=== PATIENT | female | born 1980 | race Caucasian/White ===

== ENCOUNTER 2018-11-06 05:39 | Inpatient (IN) | payer MEDICAID, SELFPAY ==
[2018-11-01 12:23] LABS: Partial Thromboplast Time 30.9 Seconds (24.1-36.2); Prothrombin Time (Protime)PT. 13.2 SECONDS (11.7-14.9)
[2018-11-01 12:37] LABS: Hematocrit 39.7 % (37-47); Hemoglobin 13.3 g/dl (12.0-15.0); Mean Corp Hgb Conc 33.5 g/gl (32-36); Mean Corpuscular Hgb 29.4 pg (27.0-32.0); Mean Corpuscular Volume 87.8 fL (81-99); Mean Platelet Vol. 9.8 fl (6.2-12.0); Platelet Count 223 K/mm3 (150-450); RBC Distribution Width CV 12.6 % (11.6-14.6); RBC Distribution Width SD 40.8 fl (35.1-43.9); Red Blood Count 4.52 M/mm3 (4.2-5.4); White Blood Count 6.3 K/mm3 (4.4-11.0)
[2018-11-01 12:39] LABS: Scan Indicated on CBC? Y/N NO
[2018-11-01 12:43] LABS: Creatinine, Serum 0.77 mg/dL (0.55-1.02); EST Glomerular Filtration Rate 90 mL/min (>60); Est Glom Filt Rate - Afr Amer 109 mL/min (>60)
[2018-11-01 13:36] LABS: Internal QC Validated? YES +Cl - CLEAR BKGD; Pregnancy, Serum, hCG Quali. NEGATIVE Negative
--- NOTE | 2018-11-05 11:35 | HP.PCM_ITS ---
History and Physical Date of Admission: 11/06/18 Surgical History and Physical Dania Velázquez, a 37 year old female 0, presents for SANDOVAL/BS on November 06, 2018 at 7:30. -- Symptomatic Uterine Fibroids -- Pt has fibroids and she is having heavier bleeding wit her menses and they are more painful. PT states she has cramping all month long. C/o when she bends over she feels what she would describe as a Belt Buckle feeling right there. Ultrasound in July showed multiple large fibroids present with total uterine volume 1100+cc: 1)submucous 8.6 x 9.9 x 9.2cm 2)6.1 x 5.4 x 4.9cm 3)3.4 x 2 x 3.2cm 4)pedunculated 6.2 x 5.4 x 4.9cm. MEDICATIONS HISTORY: Current medications prescribed by our practice are: 1. Ortho Tri-Cyclen (28) 0.18 mg(7)/0.215 mg(7)/0.25 mg(7)-35 mcg tablet, One pill by mouth once a day ALLERGIES: NKA Infections - Chicken Pox Illnesses - no serious past illnesses Accidents - no injuries of consequence Hospitalizations - None Review of Systems: GENERAL - Denies fever, or chills SKIN - Denies skin changes EYES - Denies visual changes EARS - Denies difficulty hearing NOSE - Denies nasal congestion or bleeding MOUTH - Denies sore throat or difficulty swallowing NECK - Denies pain or swelling RESPIRATORY - Denies shortness of breath or wheezing CARDIOVASCULAR - Denies palpitations or chest pain GASTROINTESTINAL - Denies nausea, vomiting, diarrhea, constipation GENITOURINARY - Denies dysuria, frequency of urination, incontinence of urine MUSCULOSKELETAL - Denies joint or muscle pain NEUROLOGICAL - Denies localized numbness or weakness PSYCHIATRIC - Denies depression or anxiety ENDOCRINE - Denies heat or cold intolerance, weight loss or gain HEMATO-IMMUNOLOGIC - Denies excesive bleeding with cuts SOCIAL HISTORY: Alcohol Use - denies drinking Smoking - denies smoking Diet - no special diet Lifestyle - low stress lifestyle Exercise - active Seat Belt Use - always Employer - [employer] Job Description - Stylist/Superintendent [employer] Illicit Drug Use - denies use of street drugs Sexual Activity - Hours Worked - Fulltime Spouse-Sig Other Name - Chan Spouse-Sig Other Occupation - [employer] FAMILY HISTORY: Family history of Maternal Great Mother- Breast CA. Mother: dx with lymphoma in September 2007. Maternal Grandfather: Pancreatic CA. MENSTRUAL HISTORY: LMP Known?- ApproximateAmount/Duration - 5-6 DAYS, Regularity - Regular, Frequency - 28 days, LMP - 10/16/18, Age Onset Menarche - 15 PAST PREGNANCIES: Total Pregnancies - 0; Full Term Pregnancies - 0; Premature - 0; Abortions, Induced - 0; Abortions, Spontaneous - 0; Ectopics - 0; Multiple Births - 0; Living Children - 0 SURGICAL HISTORY: 1. 06/11/2005 [place] Teeth Removal ; PHYSICAL EXAM BP- 100/80 Sitting, Right arm, regular cuff Temp- 98.2 Taken Orally Weight- 151.64467 lbs Height- 68.00 inch BMI:23.13 CONSTITUTIONAL - NAD, well nourished, and well developed SKIN - No rash, lesions, or ulcers HEENT - Normocephalic, PERRLA, EOMI NECK - No nodes, no nuchal rigidity and thyroid normal size and texture LYMPH NODES - Palpation of lymph nodes in neck and groins within normal limits LUNGS - CTA x2 without wheezes, crackles or rales CARDIAC - Regular rate and rhythm without rubs, murmurs, or gallops ABDOMEN - Without hepatosplenomegaly, distention, masses, rebound, or guarding; normal bowel sounds; no hernias EXTREMITIES - No edema or calf tenderness NEUROLOGICAL - Cranial nerves II-XII grossly intact PSYCHIATRIC - A and O to time, place, person, mood and affect External Genital Vagina - non-tender without lesions Urethra/Urethral Meatus - non-tender Bladder - non-tender Vagina - vaginal aguiar are pink and moist without loss of rugae and no evidence of atropy Cervix - without cervical motion tenderness and has normal size and features without evident lesions Uterus - 18 cm tender fibroid uterus Adnexa - clear without masses or tenderness ASSESSMENT/PLAN: 1. Leiomyoma Of Uterus, Unspecified Multiple large and symptomatic. Unable to remove via vaginal hyst so will proceed with SANDOVAL/BS. Discussed RBAs and all questions answered.
[2018-11-06] VITALS (11 sets, daily range): BP systolic 93–118; BP diastolic 48–71; PULSE 73–97; RESP 16–20; TEMP 36.4–38; O2SAT 94–100; BMI 24.2; BMI 24.7
[2018-11-06 06:08] LABS: Internal QC Validated? YES +Cl - CLEAR BKGD; Pregnancy, Urine Negative Negative
--- NOTE | 2018-11-06 07:30 | HYST_PTH ---
PATIENT: OREN NUNEZ LOC: [facility] U#:[id number] AGE/SX: 37/F ROOM: NE302 RE11/06/[address]: Dr. Feng Thompson MD : 1980 BED: 1 DIS: 11/07/2018 SPEC #: [id number] RECD: 11/06/18 09:40 STATUS: ELGIN LIDIA #: [id number] AMALIA: 11/06/18 07:[address]: Feng Thompson DEPT: SURGICAL PATHOLOGY RECD BY: Stephani Hassan ENTERED: 11/06/18 11:33 SP TYPE: HYSTERECT OTHR DR: No Primary Care Phys Tissues: Uterus, NOS Procedures: Surgery Specimen Level V HEADER OPERATION: Total abdominal hysterectomy, bilateral salpingectomy PRE-OP DIAGNOSIS: Leiomyoma of uterus, multiple large and symptomatic TISSUE SUBMITTED: Uterus, bilateral fallopian tubes MICROSCOPIC DIAGNOSIS Uterus, bilateral fallopian tubes, total abdominal hysterectomy and bilateral salpingectomy: Cervix - chronic inflammation and squamous metaplasia. Endometrium - proliferative endometrium. Myometrium - intramural and subserosal leiomyomas (largest measuring 9 cm in diameter). Bilateral fallopian tubes - no pathologic diagnosis. SJ:silvana 11/07/18 MICROSCOPIC DESCRIPTION Slides are reviewed. GROSS DESCRIPTION Received in fixative is one container labeled with the patient's name and designated uterus, bilateral fallopian tubes. The specimen consists of a hysterectomy specimen consisting of uterus with cervix and attached bilateral fallopian tubes. The uterus with cervix weighs 754 gm. The body of the uterus is markedly distorted due to the presence of nodular masses. The uterus with cervix measures 17 x 14 x 16 cm. The serosal surface is hernandez, glistening. Multiple subserosal nodular masses are noted. The external os is pin point in contour. The ectocervix is unremarkable. The endocervical canal measures 4 cm in length and the endocervical mucosa is hernandez, glistening and unremarkable. The endometrial cavity is compressed to one side and measures 6 cm in length and up to 2.5 cm in width. The endometrium is hernandez, glistening without any mass lesion and measures <0.1 cm in thickness. Sections of the uterine wall reveal multiple intramural and subserosal nodular masses. The largest mass is intramural and measures 9 cm in diameter. The second largest mass is subserosal and measures 8 cm in greatest dimension. Sections of these masses reveal hernandez whorled cut surfaces without areas of hemorrhage, necrosis or cystic degeneration. Sections of the largest mass reveal a focal area of edematous cut surfaces. The right fallopian tube measures 7 cm in length and 0.5 cm in diameter. The fimbrial end is identified. Sections reveal unremarkable cut surfaces. The left fallopian tube is similar appearance to right and measures 5 cm in length and 0.5 cm in diameter. Drill Press Tender sections are submitted in 12 cassettes as follows: 1 - anterior cervix, 2 - posterior cervix, 3 & 4 - anterior uterine wall, 5 & 6 - posterior uterine wall, 7 & 8 - largest nodular mass, 9 - second largest nodular mass (subserosal nodular mass), 10 - smaller nodular masses, 11 - right fallopian tube, 12 - left fallopian tube. / SJ:rg 11/06/18 TC:1 CPT: 32946
--- NOTE | 2018-11-06 07:36 | PCM.OPRPT ---
Report of Operation Date of Procedure: 11/06/18 Pre-Operative Diagnosis: Large Symptomatic Uterine Fibroids Post-Operative Diagnosis: Large Symptomatic Uterine Fibroids Surgery/Procedure Performed:: Total Abdominal Hysterectomy Bilateral Salpingectomy Description of Surgical Findings:: 20 cm size fibroid uterus with normal-appearing fallopian tubes and ovaries. passenger coach driver: Dexter Trinidad Type of Anesthesia:: General - Endotracheal Anesthesiologist: Aj Marie Specimen's removed: Uterus and bilateral fallopian tubes Drains: Castro to straight drain Estimated Blood Loss (mL): 100 cc Fluids Replaced: Crystalloid Description of Procedure: Surgeon: Feng Thompson MD, FACOG Indications: This is a 37-year-old patient G0 who his been having problems with symptomatic uterine fibroids. Given this the patient desires that we proceed with the above procedure. She has been counseled regarding the risk and indications of this procedure including the possibility of bleeding, infection, and injury to surrounding structures such as bowel bladder. All questions were answered. Procedure: Patient was taken to the operating room where after induction of general anesthesia she was prepped and draped in the usual sterile fashion. A Castro catheter was placed. The abdomen was entered through a Pfannenstiel incision and peritoneal cavity was entered bluntly. The large uterus was brought through the Pfannenstiel incision and multiple bites were taken about midway along the uterus before Alessia retractor was placed. Round ligaments were identified and ligated with 0 Vicryl suture. Mesosalpinx were ligated x2. A bladder flap was developed and progressive bites were then taken down on either side of the uterine cervix ligating each pedicle with 0 Vicryl suture. Final bites across the vaginal cuff incorporated the uterosacral ligaments into the vaginal cuff using 0 Vicryl suture and multiple [id number] sutures were placed across the vaginal cuff. Vaginal cuff and pelvic sidewall pedicles were oversewn where necessary to achieve hemostasis. Pelvis was copiously irrigated removing all clot. Alessia retractor was removed and rectus abdominis muscles were reapproximated in the midline with interrupted 0 Vicryl suture. 0 PDS strata fix was used to close the fascia in a running fashion and subcutaneous tissue was copiously irrigated with saline solution before closing with 3-0 Vicryl suture. 4-0 Monocryl suture was then used in running fashion to reapproximate skin edges area and Steri-Strips placed across the incision. Patient tolerated the procedure well was taken to recovery room in satisfactory condition; sponge instrument and needle counts were all reportedly correct. Estimated blood loss for the case was less than 100 cc. Cefotan g IV was given prior to beginning the operative procedure. There were no apparent complications of the surgery. Specimen to pathology was uterus and bilateral fallopian tubes. Grafts/Implants Used: None - Complications None - Admit VTE Documentation VTE Present on Admission: Yes VTE Mechan Device Prophylaxis: SCD's VTE Pharm Prophylaxis ordered?: Yes
--- NOTE | 2018-11-06 07:40 | OP.PCM_ITS ---
Report of Operation Date of Procedure: 11/06/18 Pre-Operative Diagnosis: Large Symptomatic Uterine Fibroids Post-Operative Diagnosis: Large Symptomatic Uterine Fibroids Surgery/Procedure Performed:: Total Abdominal Hysterectomy Bilateral Salpingectomy Description of Surgical Findings:: 20 cm size fibroid uterus with normal-appearing fallopian tubes and ovaries. wire mesh knitter: Dexter Trinidad Type of Anesthesia:: General - Endotracheal Anesthesiologist: Aj Marie Specimen's removed: Uterus and bilateral fallopian tubes Drains: Castro to straight drain Estimated Blood Loss (mL): 100 cc Fluids Replaced: Crystalloid Description of Procedure: Surgeon: Feng Thompson MD, FACOG Indications: This is a 37-year-old patient G0 who his been having problems with symptomatic uterine fibroids. Given this the patient desires that we proceed with the above procedure. She has been counseled regarding the risk and indications of this procedure including the possibility of bleeding, infection, and injury to surrounding structures such as bowel bladder. All questions were answered. Procedure: Patient was taken to the operating room where after induction of general anesthesia she was prepped and draped in the usual sterile fashion. A Castro catheter was placed. The abdomen was entered through a Pfannenstiel incision and peritoneal cavity was entered bluntly. The large uterus was brought through the Pfannenstiel incision and multiple bites were taken about midway along the uterus before Alessia retractor was placed. Round ligaments were identified and ligated with 0 Vicryl suture. Mesosalpinx were ligated x2. A bladder flap was developed and progressive bites were then taken down on either side of the uterine cervix ligating each pedicle with 0 Vicryl suture. Final bites across the vaginal cuff incorporated the uterosacral ligaments into the vaginal cuff using 0 Vicryl suture and multiple [id number] sutures were placed across the vaginal cuff. Vaginal cuff and pelvic sidewall pedicles were oversewn where necessary to achieve hemostasis. Pelvis was copiously irrigated removing all clot. Alessia retractor was removed and rectus abdominis muscles were reapproximated in the midline with interrupted 0 Vicryl suture. 0 PDS strata fix was used to close the fascia in a running fashion and subcutaneous tissue was copiously irrigated with saline solution before closing with 3-0 Vicryl suture. 4-0 Traill cryl suture was then used in running fashion to reapproximate skin edges area and Steri-Strips placed across the incision. Patient tolerated the procedure well was taken to recovery room in satisfactory condition; sponge instrument and needle counts were all reportedly correct. Estimated blood loss for the case was less than 100 cc. Cefotan g IV was given prior to beginning the operative procedure. There were no apparent complications of the surgery. Specimen to pathology was uterus and bilateral fallopian tubes. Grafts/Implants Used: None - Complications None - Admit VTE Documentation VTE Present on Admission: Yes VTE Mechan Device Prophylaxis: SCD's VTE Pharm Prophylaxis ordered?: Yes
--- NOTE | 2018-11-06 07:41 | DCINST_ITS ---
Discharge Diet: No Restrictions Discharge Activity: Return to Normal Activity - do what you feel comfortable, but do not over do it. You may climb stairs, just use caution and hold the railing., May Not Drive - for a few days or while taking narcotic pain medications., May Shower, May Take a Tub Bath May resume sexual activity in: 6 weeks - nothing in the vagina. Lifting Restrictions: 25 pounds for 6 weeks. Call your doctor if your incision/area has: Continuous Slow Oozing, Sudden Increased Bleeding, Increased Pain/ Swelling, Increased Redness, Foul Smelling Discharge Call your doctor if you observe: Fever of 101 or Higher, Inability to urinate, Inability to have a bowel movement, Using more than one pad per hour, - - Some vaginal bleeding may be noted for up to 4-8 weeks. Cleanse incision/area with: - - Let the soapy water run over your incision, rinse and pat dry. Additional Dressing/Incision Instructions:: The white strips (Steri Strips) on your incision will fall off on their own. Allergies/Adverse Reactions: Allergies No Known Allergies Allergy (Verified 11/06/18 06:19) Medications to take at Discharge Mv-Min/Vit C/Glut/Lysine/Hc124 [Airborne Tablet Chewable] 3 each PO DAILY 10/30/18 Docusate Sodium [Colace] 100 mg PO BID PRN PRN #60 cap 11/06/18 RX: Oxycodone [Oxyir] 5 mg PO Q6H PRN PRN 7 Days #20 tab 11/06/18 The following prescriptions were given: RX: Oxycodone [Oxyir] 5 mg PO Q6H PRN PRN 7 Days #20 tab PRN Reason: Severe Pain (6-1010) Docusate Sodium [Colace] 100 mg PO BID PRN PRN #60 cap PRN Reason: Constipation Primary Care Physician: Care Physician,No Primary [Primary Care Provider] - Test Results: Test results from this visit will be discussed in further detail at your follow- up appointment, if applicable. Please Follow Up With: Feng Thompson MD - [phone] When: in 2 weeks, please call to make an appointment.
[2018-11-06] MEDS: Dextrose 5%-Lactated Ringers 1,000 ML 150 ML IV ×2 (11:31→18:16)
[2018-11-06] MEDS: Ketorolac 30 MG/ML Syringe IV ×2 (12:56→18:22)
[2018-11-06] MEDS: Enoxaparin 30 MG/0.3 ML Syringe SC (18:21)
[2018-11-07 00:40] VITALS: BP 107/66; PULSE 81; RESP 20; TEMP 37.2; O2SAT 100
[2018-11-07] MEDS: Ketorolac 10 MG Tablet PO ×4 (00:41→18:03)
[2018-11-07 05:53] LABS: Hematocrit 37.3 % (37-47); Hemoglobin 12.2 g/dl (12.0-15.0); Mean Corp Hgb Conc 32.7 g/gl (32-36); Mean Corpuscular Volume 88.6 fL (81-99); Mean Platelet Vol. 9.9 fl (6.2-12.0); Platelet Count 198 K/mm3 (150-450); RBC Distribution Width CV 12.8 % (11.6-14.6); RBC Distribution Width SD 40.6 fl (35.1-43.9); Red Blood Count 4.21 M/mm3 (4.2-5.4); White Blood Count 14.2 K/mm3 (4.4-11.0)
[2018-11-07 05:56] LABS: Creatinine, Serum 0.92 mg/dL (0.55-1.02); EST Glomerular Filtration Rate 74 mL/min (>60); Est Glom Filt Rate - Afr Amer 90 mL/min (>60)
[2018-11-07 06:03] LABS: Scan Indicated on CBC? Y/N NO
[2018-11-07 06:39] VITALS: BP 118/70; PULSE 83; RESP 17; TEMP 36.6; O2SAT 99
[2018-11-07 06:48] VITALS: O2SAT 98
--- NOTE | 2018-11-07 08:31 | PCM.PN.OB ---
Subjective: Patient without complaints. Tolerating diet well. Pain well controlled. Minimal vaginal bleeding. Wants to go home later today if possible. - Physical Exam Vital Signs Temp Pulse Resp BP Pulse Ox 97.9 F 83 17 118/70 99 11/07/18 06:39 11/07/18 06:39 11/07/18 06:39 11/07/18 06:39 11/07/18 06:39 Oxygen Delivery Method Room Air Weight: 153 lb Body Mass Index (BMI) 24.7 Intake and Output for Last 24 Hours 11/05/18 11/06/18 11/07/18 23:59 23:59 23:59 Intake Total 3675 / 3675 520 / 520 Output Total 875 / 875 500 / 500 Balance 2800 / 2800 Laboratory Tests Past 24 Hrs 11/07/18 11/07/18 05:18 05:18 WBC 14.2 H RBC 4.21 Hgb 12.2 Hct 37.3 MCV 88.6 MCH 29.0 MCHC 32.7 RDW 12.8 RDW Differential 40.6 Plt Count 198 MPV 9.9 Creatinine 0.92 Estim Creat Clear Calc 79.90 Est GFR (MDRD) Af Amer 90 Est GFR (MDRD) Non-Af 74 Wound is clean, dry, intact. Good urine output. Hemoglobin and creatinine okay. Medical Necessity - Tobacco Use Smoking Status: Never smoker Tobacco Use: Non-smoker Assessment/Plan Doing well postoperative day #1 status post total abdominal hysterectomy. Will release to home later today if tolerating diet well and shows evidence of bowel function. Follow-up in 2 weeks.
--- NOTE | 2018-11-07 08:50 | CASEMGMT ---
RN ELIUD Face to Face with patient for initial transition planning/care coordination assessment. RN CM introduced self and role at [facility]. Patient lying in bed, alert and oriented. Patient willing to participate in assessment and is able to answer all questions appropriately. Care providers, pharmacy, and demographics verified. Patient wishes to discharge home, denies need for home health at this time. Patient states she has no further needs or concerns at this time. CM to follow for discharge planning needs that may arise. PCP: None, list of PCPs provided Specialists: VAIBHAV Thompson [facility]erred [facility]acy: [facility] Insurance: [employer] Prescription Benefit: Yes Living Will/HPOA: None LNOK: Living Arrangements: Patient lives with in 2 story home. Patient is independent and able to navigate stairs. Transportation: self/ DME/HHC: Patient denies DME or HHC at this time. Disposition Plan: Patient to discharge home with family support and follow-up plans in place. Irma MARTINEZ, RN, CM
[2018-11-07 11:37] VITALS: BP 121/69; PULSE 75; RESP 16; TEMP 36.8; O2SAT 100
[2018-11-07 16:00] VITALS: BP 116/57; PULSE 93; RESP 16; TEMP 36.8; O2SAT 100
[2018-11-07] MEDS: Bisacodyl 10 MG Suppository RECTAL (16:09)
--- NOTE | 2018-11-07 17:30 | PCA ---
pt out walking in the [place]
[2018-11-07 18:00] VITALS: BP 116/57; PULSE 93; RESP 16; TEMP 36.8; O2SAT 100
== END 2018-11-07 18:33 | disposition home or self-care (01) | DRG 519 ==
LOC: ACINP 05:45 → MS3 08:01
PROVIDERS: Anesthesiology; Admitting Provider Obstetrics & Gynecology; Referring Provider Obstetrics & Gynecology; Visit Provider Obstetrics & Gynecology
PROC: 0UT90ZZ Resection of Uterus, Open Approach (ICD-10-PCS; CPT 58150; principal; 2018-11-06 07:10)
DX: D25.9 Leiomyoma of uterus, unspecified (principal)
CPT/HCPCS: 36415; 81025; 82565; 84703; 85027; 85610; 85730; 86850; 86900; 88307; J7120; J2405

== ENCOUNTER → 2018-11-28 15:47 | Outpatient (CLI) | payer SELFPAY ==
[2018-11-06 10:49] VITALS: BMI 24.7
--- NOTE | 2018-11-28 15:53 | VDLE_ITS ---
Reason For Study: pain RIGHT GSV is normal. CFV is compressible, spontaneous, phasic, competent and demonstrates normal augmentation. FV is compressible, spontaneous, phasic, competent and demonstrates normal augmentation. POP V is compressible, spontaneous, phasic, competent and demonstrates normal augmentation. T/P Trunk is compressible. PTV is compressible. RT PerV is compressible. Procedure Exam performed in department. The exam was diagnostic. A preliminary report was called and/or faxed to Dr. Muñoz's office. Interpretation Summary Deep veins of the right lower extremity are patent and compressible segmentally. There is no evidence of right lower extremity deep vein thrombosis. Valvular competence appears intact within the proximal deep venous system on the right . The right greater saphenous vein appears patent and compressible segmentally. Ordering Physician: Angy Muñoz Performed By: Cheikh Aguilar RVT
== END ==
PROVIDERS: Referring Provider Obstetrics & Gynecology; Visit Provider Obstetrics & Gynecology
DX: M79.604 Pain in right leg (principal)
CPT/HCPCS: 93971

== ENCOUNTER → 2020-10-08 08:43 | Outpatient (CLI) | payer SELFPAY ==
[2018-11-06 10:49] VITALS: BMI 24.7
[2020-10-08 10:31] LABS: Hematocrit 41.1 % (37-47); Hemoglobin 13.5 g/dL (12.0-15.0); Mean Corp Hgb Conc 32.8 g/dL (32-36); Mean Corpuscular Hgb 29.4 pg (27.0-32.0); Mean Corpuscular Volume 89.5 fL (81-99); Mean Platelet Vol. 9.9 fl (6.2-12.0); Platelet Count 213 K/mm3 (150-450); RBC Distribution Width CV 12.2 % (11.6-14.6); Red Blood Count 4.59 M/mm3 (4.2-5.4); White Blood Count 5.8 K/mm3 (4.4-11.0)
[2020-10-08 10:49] LABS: Hemoglobin A1c 5.2 % (3.8-5.6)
[2020-10-08 10:57] LABS: Cholesterol 201 mg/dL (200); High Density Lipoprotein 74 mg/dL; Thyroid Stim Hormone (TSH) 1.94 uIU/mL (0.358-3.74); Triglycerides 39 mg/dL; Very Low Density Lipoprotein 8 mg/dL (5-40)
== END ==
PROVIDERS: Visit Provider Obstetrics & Gynecology
DX: Z13.9 Encounter for screening, unspecified (principal)
CPT/HCPCS: 36415; 80061; 83036; 84443; 85027